=== PATIENT | female | born 1975 | race Caucasian/White ===

== ENCOUNTER → 2016-09-23 | Outpatient (REF) | payer OTHER ==
[2016-09-23 18:41] LABS: EOS # 0.4 K/mm3 (0.0-0.50); EOS % 7.4 % (0.0-3.0); LARGE UNSTAINED CELL # 0.1 K/mm3 (0.0-0.4); LARGE UNSTAINED CELL % 1.8 % (0.0-4.0); LYMPH # 1.7 K/mm3 (1.5-4.5); LYMPH % 30.3 % (24.0-44.0); MEAN CORPUSCULAR HEMOGLOBIN 30.6 pg (27.0-33.0); MEAN CORPUSCULAR HGB CONC 34.1 g/dl (32.0-36.5); MEAN CORPUSCULAR VOLUME 89.9 fl (80.0-96.0); MONO # 0.2 K/mm3 (0.0-0.8); MONO % 4.6 % (0.0-5.0); NEUTROPHILS # 2.9 K/mm3 (1.8-7.7); NEUTROPHILS % 54.8 % (36.0-66.0); PLATELET COUNT, AUTOMATED 205 k/mm3 (150-450); RED CELL DISTRIBUTION WIDTH 12.3 % (11.5-14.5); WHITE BLOOD COUNT 5.3 K/mm3 (4.0-10.0)
[2016-09-23 19:26] LABS: FREE T4 0.94 NG/DL (0.76-1.46); PERCENT SATURATION 29.6 % (13.2-37.4); TOTAL IRON BINDING CAPACITY 361 UG/DL (250-450)
[2016-09-24 08:43] LABS: THYROID PEROXIDASE ANTIBODY < 28.0 U/ML (<60.0)
== END ==
LOC: M LABDRAW1 17:01
PROVIDERS: ATTEND Nurse Practitioner Pediatrics
DX: F41.1 Generalized anxiety disorder (principal); R53.81 Other malaise; M35.3 Polymyalgia rheumatica; E03.8 Other specified hypothyroidism

== ENCOUNTER → 2016-11-08 | Outpatient (CLI) | payer OTHER ==
[2016-11-08 09:09] LABS: C4-DICARBOXYLIC N
[2016-11-08 09:52] LABS: FREE T4 1.19 NG/DL (0.76-1.46)
[2016-11-10 09:58] LABS: PROGESTERONE 9.9 NG/ML
== END ==
LOC: M LAB 08:42
PROVIDERS: ATTEND Nurse Practitioner Pediatrics
DX: R53.81 Other malaise (principal); F41.1 Generalized anxiety disorder; M35.3 Polymyalgia rheumatica; E03.8 Other specified hypothyroidism

== ENCOUNTER → 2016-12-11 | Outpatient (REF) | payer OTHER ==
[2016-12-11 21:11] LABS: FREE T4 0.8 NG/DL (0.76-1.46); PERCENT SATURATION 26.8 % (13.2-37.4)
== END | disposition home or self-care (01) ==
LOC: M LABDRWAD 20:16 → M LAB REF 20:16
PROVIDERS: ATTEND Nurse Practitioner Pediatrics
DX: F41.1 Generalized anxiety disorder (principal); E03.8 Other specified hypothyroidism; R53.81 Other malaise; M35.3 Polymyalgia rheumatica; D50.9 Iron deficiency anemia, unspecified

== ENCOUNTER → 2017-02-20 | Outpatient (CLI) | payer OTHER ==
[~2017-02-20] MED LIST: BENA25CA4 PO; CETI10TA PO; MOTR200T44 PO; NP T90TA PO; PROBCAP18 PO; WELLTAB40 PO
[2017-02-20 19:06] LABS: FREE T4 1.09 NG/DL (0.76-1.46)
== END ==
LOC: M SMT 14:49
PROVIDERS: ATTEND Nurse Practitioner Pediatrics
DX: E07.9 Disorder of thyroid, unspecified (principal)

== ENCOUNTER → 2017-04-24 | Outpatient (CLI) | payer OTHER ==
--- NOTE | 2017-04-28 06:23 | REP ---
Clinical: Abdominal and pelvic pain. Technique: Transabdominal pelvic ultrasound followed by transvaginal examination for better evaluation of the endometrium and adnexa. Findings: Bladder is normal and measures 11.1 x 9.7 x 10.4 cm. Heterogeneous anteverted uterus measures 12.8 x 4.0 x 6.7 cm. The endometrial complex measures 6.7 mm thickness. A small amount of fluid is identified extending into the endocervical region which is otherwise nonspecific. A 1.3 cm heterogeneous right fundal subserosal fibroid is identified. Maternal ovaries are normal in appearance. Right ovary measures 3.6 x 1.9 x 2.0 cm with sub centimeter follicles. Left ovary measures 2.4 x 1.6 x 1.2 cm with sub centimeter follicles. No pelvic fluid or adnexal mass lesion. Impression: 1. Heterogeneous mildly prominent uterus with small amount of endocervical fluid and 1.3 cm right fundal subserosal fibroid. 2. Normal bilateral ovaries. No pelvic fluid or adnexal mass lesion.
== END ==
LOC: M WHC 15:18
PROVIDERS: ATTEND Nurse Practitioner Women's Health
DX: R10.30 Lower abdominal pain, unspecified (principal); Z87.42 Personal history of other diseases of the female genital tract; Z80.41 Family history of malignant neoplasm of ovary

== ENCOUNTER → 2017-05-05 | Outpatient (REF) | payer OTHER | LOC: MERGE 17:00 → M LAB REF 17:00 | PROVIDERS: ATTEND Physician Assistant Medical | DX: N39.0 Urinary tract infection, site not specified (principal) ==

== ENCOUNTER 2017-05-18 08:39 | Emergency (ER) | payer OTHER ==
[~2017-05-18] VITALS: Ht 142.2 cm; Wt 51.4 kg
[2017-05-18] MEDS ORDERED: NP T90TA PO (09:01)
[2017-05-18] MEDS ORDERED: MOTR200T44 PO (09:01)
[2017-05-18] MEDS ORDERED: PROBCAP18 PO (09:01)
[2017-05-18] MEDS ORDERED: WELLTAB40 PO (09:01)
[2017-05-18] MEDS ORDERED: BENA25CA4 PO (09:01)
[2017-05-18] MEDS ORDERED: CETIRIZINE (ZyrTEC) 10 MG TAB PO ONE (10:30)
[2017-05-18] MEDS ORDERED: CETI10TA PO (11:28)
[2017-05-18 11:37] VITALS: BP 142/71
== END 2017-05-18 11:38 | disposition home or self-care (01) ==
LOC: M ED 08:39
DX: L50.9 Urticaria, unspecified (principal); M79.7 Fibromyalgia; F41.9 Anxiety disorder, unspecified; Z79.899 Other long term (current) drug therapy; Z88.0 Allergy status to penicillin; Z88.2 Allergy status to sulfonamides

== ENCOUNTER → 2017-05-18 | Outpatient (CLI) | payer OTHER ==
--- NOTE | 2017-05-19 06:46 | REP ---
Clinical: Abdominal and periumbilical pain. Comparison: 10/16/2014. Findings: Lung bases are clear. Visualized heart and pericardium unremarkable. Liver, spleen, pancreas, gallbladder, bilateral adrenal glands and kidneys are normal for noncontrast evaluation. The enteric system is without obstruction or acute inflammatory process. Normal terminal ileum and appendix are identified in the right lower quadrant. Pelvis demonstrates normal bladder and age-appropriate uterus/adnexa. No free air. No free fluid. No significant adenopathy or obvious mass lesion. No inguinal, umbilical or periumbilical hernia. The periumbilical subcutaneous and surrounding soft tissues are unremarkable. Surrounding musculoskeletal structures are intact. Impression: Normal noncontrast CT of the abdomen and pelvis. Signed by Victor Manuel Acuna MD 05/19/2017 06:38 A
== END ==
LOC: M RAD 16:49 → MERGE 17:00
PROVIDERS: ATTEND Physician Assistant Medical
DX: R10.9 Unspecified abdominal pain (principal)

== ENCOUNTER → 2017-09-22 | Outpatient (REF) | payer OTHER ==
[2017-09-22 20:30] LABS: TOTAL 25(OH) VITAMIN D 49.2 NG/ML (30.0-100.0)
[2017-09-22 20:36] LABS: CALCIUM LEVEL 8.6 MG/DL (8.5-10.1)
[2017-09-22 20:36] LABS: FREE T3 2.8 PG/ML (2.2-4.0); FREE T4 0.72 NG/DL (0.76-1.46); IRON (FE) 106 UG/DL (50-170)
== END ==
LOC: M LABDRWAD 18:26
DX: F41.1 Generalized anxiety disorder (principal); E03.8 Other specified hypothyroidism; R53.81 Other malaise

== ENCOUNTER → 2017-09-23 | Outpatient (REF) | payer OTHER | LOC: M LABDRAW1 10:00 | DX: Z83.2 Family history of diseases of the blood and blood-forming organs and certain disorders involving the immune mechanism (principal) | CPT/HCPCS: 36415 ==

== ENCOUNTER → 2017-09-30 | Outpatient (CLI) | payer OTHER ==
[2017-09-30 14:01] LABS: HEMATOCRIT 40.8 % (36.0-47.0); HEMOGLOBIN 13.5 g/dl (12.0-16.0); MEAN CORPUSCULAR HEMOGLOBIN 29.2 pg (27.0-33.0); MEAN CORPUSCULAR HGB CONC 33.1 g/dl (32.0-36.5); MEAN CORPUSCULAR VOLUME 88.3 fl (80.0-96.0); PLATELET COUNT, AUTOMATED 194 10^3/uL (150-450); RED BLOOD COUNT 4.62 10^6/uL (4.00-5.40); RED CELL DISTRIBUTION WIDTH 11.9 % (11.5-14.5); WHITE BLOOD COUNT 5.2 10^3/uL (4.0-10.0)
[2017-09-30 14:14] LABS: D-DIMER QUANT 360.2 ng/ml (<500)
[2017-09-30 14:30] LABS: ALBUMIN 4.4 GM/DL (3.2-5.2); ALBUMIN/GLOBULIN RATIO 1.47 (1.00-1.93); ALKALINE PHOSPHATASE 71 U/L (45-117); ALT/SGPT 26 U/L (12-78); ANION GAP 5 MEQ/L (8-16); AST/SGOT 17 U/L (7-37); BILIRUBIN,TOTAL 0.3 MG/DL (0.2-1.0); BLOOD UREA NITROGEN 12 MG/DL (7-18); CALCIUM LEVEL 8.8 MG/DL (8.5-10.1); CARBON DIOXIDE LEVEL 30 MEQ/L (21-32); CHLORIDE LEVEL 103 MEQ/L (98-107); CREATININE FOR GFR 0.77 MG/DL (0.55-1.30); GLOMERULAR FILTRATION RATE > 60.0 (>58); GLUCOSE, FASTING 82 MG/DL (70-100); POTASSIUM SERUM 4.5 MEQ/L (3.5-5.1); SODIUM LEVEL 138 MEQ/L (136-145); TOTAL PROTEIN 7.4 GM/DL (6.4-8.2)
== END ==
LOC: M SMT 09:25
DX: R30.0 Dysuria (principal); R07.9 Chest pain, unspecified
CPT/HCPCS: 80053

== ENCOUNTER → 2017-12-10 | Outpatient (CLI) | payer OTHER | LOC: M WHC 15:01 | DX: N83.202 Unspecified ovarian cyst, left side (principal); R93.8 Abnormal findings on diagnostic imaging of other specified body structures | CPT/HCPCS: 76830 ==

== ENCOUNTER → 2018-02-25 | Outpatient (REF) | payer OTHER ==
[2018-02-25 17:15] LABS: C REACTIVE PROTEIN QUANTITATIV < 0.30 MG/DL (0.00-0.30); FREE T3 3.2 PG/ML (2.2-4.0); FREE T4 0.77 NG/DL (0.76-1.46); IRON (FE) 141 UG/DL (50-170); PERCENT SATURATION 40.9 % (13.2-45.0); TOTAL IRON BINDING CAPACITY 345 UG/DL (250-450)
[2018-02-25 18:17] LABS: TOTAL 25(OH) VITAMIN D 36.8 NG/ML (30.0-100.0)
[2018-02-25 20:35] LABS: ERYTHROCYTE SEDIMENTATION RATE 5 mm/hr (0-20)
[2018-02-26 09:14] LABS: THYROID PEROXIDASE ANTIBODY < 28.0 U/ML (<60.0)
[2018-03-03 14:17] LABS: ANTINUCLEAR ANTIBODIES DIRECT Negative (Negative); MYCOPLASMA PNEUMONIAE IgG 358 U/mL (0-99); MYCOPLASMA PNEUMONIAE IgM <770 U/mL (0-769)
[2018-03-03 14:17] LABS: T3 REVERSE 15.8 ng/dL (9.2-24.1)
== END ==
LOC: M LABDRAW1 15:50
DX: F41.1 Generalized anxiety disorder (principal); E03.8 Other specified hypothyroidism; R53.81 Other malaise; M35.3 Polymyalgia rheumatica

== ENCOUNTER 2018-03-02 07:42 | Day surgery (SDC) | payer OTHER ==
[~2018-03-02 07:42] MED LIST changes: -BENA25CA4 PO; -CETI10TA PO; +KETOROLAC 60 MG/2 ML VIAL (J1885) As Ordered; +LIDOCAINE 2% INJ 100 MG/5 ML SDV (FOR ANES.) As Ordered; +LR 1,000 ML IV; -MOTR200T44 PO; -NP T90TA PO; +ONDANSETRON 4MG/2ML VIAL (J2405) As Ordered; -PROBCAP18 PO; +PROPOFOL 200 MG/20 ML VIAL As Ordered; +ROCURONIUM BROMIDE 50 MG/5 ML VIAL As Ordered; -WELLTAB40 PO; +dexameTHASONE 4 MG/ML 1ML VIAL (J1100) As Ordered
[2018-03-02] MEDS ORDERED: fentaNYL 250 MCG/5 ML INJECTION (J3010) As Ordered (07:58)
[2018-03-02] MEDS ORDERED: MIDAZOLAM INJ 2 MG/2 ML VIAL (J2250) As Ordered (07:58)
[2018-03-02 08:24] LABS: CONTROL LINE UCG INT CTR LINE PRESENT; URINE PREG TEST NEGATIVE (NEGATIVE)
[2018-03-02] MEDS: ceFAZolin SOD 1 GM in D5W MINI-BAG PLUS 50 ML IV (09:10)
[2018-03-02] MEDS: BUPIVACAINE/EPIN 0.25% 30 ML VIAL As Ordered (09:46)
[2018-03-02] MEDS ORDERED: ONDANSETRON 4MG/2ML VIAL (J2405) As Ordered (10:19)
[2018-03-02] MEDS: ONDANSETRON 4MG/2ML VIAL (J2405) IV (10:20)
[2018-03-02] MEDS ORDERED: LR 1,000 ML IV ×2 (10:30)
[2018-03-02] MEDS ORDERED: PERCOCET 5MG/325MG TAB PO (10:30)
[2018-03-02] MEDS ORDERED: ONDANSETRON 4MG/2ML VIAL (J2405) IV (10:30)
[2018-03-02] MEDS ORDERED: NORCO, ANEXSIA 5/325MG TABLET (HYDROcodone/ACETAMINOPHEN) PO (10:30)
[2018-03-02] MEDS ORDERED: fentaNYL 100 MCG/2 ML INJECTION (J3010) IV (10:30)
[2018-03-02] MEDS ORDERED: MORPHINE 4 MG/ML 1ML VIAL/SYRINGE (J2270) IV (10:30)
[2018-03-02] MEDS ORDERED: SUGAMMADEX SODIUM 500 MG/5 ML VIAL (BRIDION) As Ordered (11:20)
[2018-03-02] MEDS ORDERED: METOCLOPRAMIDE INJ 10MG/2ML VIAL (J2765) As Ordered (12:02)
[2018-03-02] MEDS: METOCLOPRAMIDE INJ 10MG/2ML VIAL (J2765) IV (12:10)
== END 2018-03-02 13:36 | disposition home or self-care (01) ==
LOC: M SDC 07:42
DX: K43.6 Other and unspecified ventral hernia with obstruction, without gangrene (principal); E03.9 Hypothyroidism, unspecified; K58.8 Other irritable bowel syndrome; F41.9 Anxiety disorder, unspecified; G47.30 Sleep apnea, unspecified; Z88.0 Allergy status to penicillin; Z88.2 Allergy status to sulfonamides; Z79.899 Other long term (current) drug therapy
CPT/HCPCS: 49570

== ENCOUNTER → 2018-03-08 | Outpatient (CLI) | payer OTHER ==
[2018-03-08 13:28] LABS: ALBUMIN 3.9 GM/DL (3.2-5.2); ALBUMIN/GLOBULIN RATIO 1.05 (1.00-1.93); ALKALINE PHOSPHATASE 87 U/L (45-117); ALT/SGPT 70 U/L (12-78); ANION GAP 6 MEQ/L (8-16); AST/SGOT 33 U/L (7-37); BILIRUBIN,TOTAL 0.2 MG/DL (0.2-1.0); BLOOD UREA NITROGEN 8 MG/DL (7-18); CALCIUM LEVEL 8.9 MG/DL (8.5-10.1); CARBON DIOXIDE LEVEL 29 MEQ/L (21-32); CHLORIDE LEVEL 110 MEQ/L (98-107); CREATININE FOR GFR 0.71 MG/DL (0.55-1.30); GLOMERULAR FILTRATION RATE > 60.0 (>58); GLUCOSE, FASTING 81 MG/DL (70-100); POTASSIUM SERUM 4.5 MEQ/L (3.5-5.1); RHEUMATOID FACTOR QUANT < 10.0 IU/ML (<15.0); SODIUM LEVEL 145 MEQ/L (136-145); TOTAL PROTEIN 7.6 GM/DL (6.4-8.2)
[2018-03-10 00:07] LABS: CYCLIC CITRULLINATED PEPTIDE 3 units (0-19)
[2018-03-10 00:07] LABS: ANTINUCLEAR ANTIBODIES DIRECT Negative (Negative); Lyme Disease IgG/IgM Antibodie <0.91 ISR (0.00-0.90); Lyme Disease IgM Ab Quantitati <0.80 index (0.00-0.79)
== END ==
LOC: M SMT 09:07
DX: R53.83 Other fatigue (principal); M79.1 Myalgia; R10.84 Generalized abdominal pain
CPT/HCPCS: 80053

== ENCOUNTER → 2018-03-10 | Outpatient (REF) | payer OTHER ==
[2018-03-12 00:08] LABS: H PYLORI STOOL ANTIGEN Negative (Negative)
== END ==
LOC: M LAB REF 10:32
DX: R19.7 Diarrhea, unspecified (principal); R10.84 Generalized abdominal pain
CPT/HCPCS: 87338

== ENCOUNTER → 2018-03-22 | Outpatient (REF) | payer OTHER | LOC: M LAB REF 17:48 | DX: R10.2 Pelvic and perineal pain (principal) | CPT/HCPCS: 87186 ==

== ENCOUNTER → 2018-04-11 | Outpatient (REF) | payer OTHER ==
[2018-04-11 22:30] LABS: APPEARANCE, URINE CLEAR (CLEAR); BACTERIA, URINE AUTO 2+ (NEGATIVE); BILIRUBIN, URINE AUTO NEGATIVE (NEGATIVE); BLOOD, URINE BLOOD NEGATIVE (NEGATIVE); COLOR, URINE YELLOW (YELLOW); GLUCOSE, URINE (UA) AUTO NEGATIVE (NEGATIVE); KETONE, URINE AUTO NEGATIVE (NEGATIVE); LEUKOCYTE ESTERASE, URINE AUTO NEGATIVE (NEGATIVE); NITRITE, URINE AUTO NEGATIVE (NEGATIVE); PROTEIN, URINE AUTO NEGATIVE (NEGATIVE); RBC, URINE AUTO 1 /HPF (0-3); SPECIFIC GRAVITY URINE AUTO 1.004 (1.002-1.035); SQUAMOUS EPITHELIAL CELL UR AU 0 /HPF (0-6); UROBILINOGEN, URINE AUTO 0.2 mg/dL (0.0-2.0); WBC, URINE AUTO 1 /HPF (0-3)
== END ==
LOC: M LAB REF 21:47
DX: N39.0 Urinary tract infection, site not specified (principal)

== ENCOUNTER → 2018-04-23 | Outpatient (REF) | payer OTHER ==
[2018-04-23 14:15] LABS: CHLAMYDIA DNA AMPLIFICATION NEGATIVE (NEGATIVE); GC DNA AMPLIFICATION NEGATIVE (NEGATIVE)
== END ==
LOC: M SFHCWAGY 11:36
DX: R10.2 Pelvic and perineal pain (principal)

== ENCOUNTER → 2018-04-23 | Outpatient (REF) | payer OTHER | LOC: M LAB REF 11:33 | DX: N89.8 Other specified noninflammatory disorders of vagina (principal) ==

== ENCOUNTER → 2018-06-14 | Outpatient (REF) | payer OTHER ==
[2018-06-14 13:54] LABS: HEMATOCRIT 40.3 % (36.0-47.0)
[2018-06-14 14:09] LABS: FREE T3 4.8 PG/ML (2.2-4.0); FREE T4 0.78 NG/DL (0.76-1.46)
[2018-06-14 14:21] LABS: TOTAL 25(OH) VITAMIN D 44.9 NG/ML (30.0-100.0)
[2018-06-15 10:42] LABS: PRETREATED FOLATE FOR RBCFOL 11.1 NG/ML; RBC FOLATE 578 NG/ML (280-791)
[2018-06-16 12:56] LABS: CORTISOL AM 8.5 UG/DL (4.3-22.4)
[2018-06-18 00:56] LABS: ARSENIC BLOOD 7 ug/L (2-23); LEAD BLOOD None Detected ug/dL (0-4); MAGNESIUM RBC LEVEL 4.7 mg/dL (4.2-6.8); MERCURY BLOOD None Detected ug/L (0.0-14.9); MYCOPLASMA PNEUMONIAE IgG 223 U/mL (0-99); MYCOPLASMA PNEUMONIAE IgM <770 U/mL (0-769); Methylmalonic Acid 120 nmol/L (0-378)
== END ==
LOC: M LABDRAW1 13:12
DX: F41.1 Generalized anxiety disorder (principal); R53.81 Other malaise; M35.3 Polymyalgia rheumatica; E03.8 Other specified hypothyroidism

== ENCOUNTER → 2018-08-11 | Outpatient (REF) | payer OTHER ==
[~2018-08-11] MED LIST changes: +BENA25CA4 PO; +BUPR15TA PO; +CETI10TA PO; -KETOROLAC 60 MG/2 ML VIAL (J1885) As Ordered; -LIDOCAINE 2% INJ 100 MG/5 ML SDV (FOR ANES.) As Ordered; -LR 1,000 ML IV; +MOTR200T44 PO; +NP T90TA PO; -ONDANSETRON 4MG/2ML VIAL (J2405) As Ordered; +PROBCAP18 PO; -PROPOFOL 200 MG/20 ML VIAL As Ordered; -ROCURONIUM BROMIDE 50 MG/5 ML VIAL As Ordered; +WELLTAB40 PO; -dexameTHASONE 4 MG/ML 1ML VIAL (J1100) As Ordered
[2018-08-14 18:21] LABS: HPV HYBRID CAPTURE II Negative (Negative)
== END ==
LOC: M SFHCWAGY 16:05
PROVIDERS: ATTEND Nurse Practitioner Family
DX: Z12.4 Encounter for screening for malignant neoplasm of cervix (principal)
CPT/HCPCS: 87624; G0123

== ENCOUNTER → 2018-10-15 | Outpatient (REF) | payer OTHER | LOC: M LAB REF 19:11 | PROVIDERS: ATTEND Physician Assistant Medical | DX: J02.9 Acute pharyngitis, unspecified (principal) ==

== ENCOUNTER → 2018-11-27 | Outpatient (CLI) | payer OTHER | LOC: M LAB 13:49 | PROVIDERS: ATTEND Specialist | DX: K62.5 Hemorrhage of anus and rectum (principal); R19.4 Change in bowel habit ==

== ENCOUNTER 2019-01-14 16:01 | Emergency (ER) | payer OTHER ==
[~2019-01-14] VITALS: Ht 144.8 cm; Wt 51.4 kg
[2019-01-14 16:35] LABS: BASO # 0.1 10^3/uL (0.0-0.2); BASO % 0.8 % (0.0-1.0); EOS # 0.3 10^3/uL (0.0-0.50); EOS % 4.3 % (0.0-3.0); HEMOGLOBIN 13.3 g/dl (12.0-15.5); MEAN CORPUSCULAR HEMOGLOBIN 29.4 pg (27.0-33.0); MEAN CORPUSCULAR HGB CONC 33.3 g/dl (32.0-36.5); MEAN CORPUSCULAR VOLUME 88.3 fl (80.0-96.0); MONO # 0.5 10^3/uL (0.0-0.8); MONO % 6.4 % (0.0-5.0); NEUTROPHILS # 4.4 10^3/uL (1.8-7.7); NEUTROPHILS % 60.4 % (36.0-66.0); PLATELET COUNT, AUTOMATED 171 10^3/uL (150-450); RED BLOOD COUNT 4.53 10^6/uL (4.00-5.40); WHITE BLOOD COUNT 7.2 10^3/uL (4.0-10.0)
[2019-01-14 17:07] LABS: HCG, SERUM QUALITATIVE NEGATIVE (NEGATIVE)
[2019-01-14 17:15] LABS: ALBUMIN 4.5 GM/DL (3.2-5.2); ALT/SGPT 21 U/L (12-78); BILIRUBIN,DIRECT 0.1 MG/DL (0.0-0.2); BILIRUBIN,TOTAL 0.4 MG/DL (0.2-1.0); BLOOD UREA NITROGEN 12 MG/DL (7-18); CALCIUM LEVEL 9.1 MG/DL (8.5-10.1); CARBON DIOXIDE LEVEL 27 MEQ/L (21-32); CHLORIDE LEVEL 105 MEQ/L (98-107); CK-MB VALUE MASS < 1.0 NG/ML (<3.6); CPK CREATINE PHOSPHOKINASE 76 U/L (26-192); CREATININE FOR GFR 0.93 MG/DL (0.55-1.30); FREE T4 0.81 NG/DL (0.76-1.46); GLOMERULAR FILTRATION RATE > 60.0 (>58); GLUCOSE, FASTING 80 MG/DL (70-100); LIPASE 167 U/L (73-393); MB/CK RELATIVE INDEX 1.32 (< OR =4); POTASSIUM SERUM 3.7 MEQ/L (3.5-5.1); SODIUM LEVEL 138 MEQ/L (136-145); THYROID STIMULATING HORMONE 0.767 uIU/ML (0.358-3.740); TOTAL PROTEIN 7.9 GM/DL (6.4-8.2); TROPONIN I < 0.02 NG/ML (< 0.10)
[2019-01-14] MEDS ORDERED: ISOVUE-370 76% 100ML VIAL (Q9967) As Ordered ONE (17:24)
[2019-01-14 18:00] VITALS: BP 114/66
--- NOTE | 2019-01-14 18:04 | REP ---
CHEST: Single view: There is no evidence of acute infiltrate. No pleural effusion is seen. The heart is normal in size. The mediastinal silhouette is unremarkable. The visualized osseous structures are intact. IMPRESSION: No acute pulmonary disease. Electronically Signed by Rusty Marie MD 01/14/2019 07:48 P
--- NOTE | 2019-01-14 18:12 | REP ---
CT ANGIOGRAM CHEST: TECHNIQUE: Axial contrast enhanced images from the thoracic inlet to the upper abdomen using 100 mL Isovue 370 intravenous contrast material with multiplanar reformations. There is no CT evidence of pulmonary embolism. There is no thoracic aortic aneurysm or dissection. Heart is not enlarged. There is no pleural or pericardial effusion. There is no mediastinal, hilar, or chest wall lymphadenopathy. The visualized upper abdominal structures are unremarkable. The adrenal glands are normal. The lungs are clear with no infiltrate. IMPRESSION: No CT evidence of pulmonary embolism or aortic dissection. No evidence of acute infiltrate. Electronically Signed by Rusty Marie MD 01/14/2019 07:49 P
--- NOTE | 2019-01-14 18:16 | REPVR ---
EXAM: US Duplex Left Lower Extremity Veins, Limited EXAM DATE/TIME: 01/14/2019 5:47 PM CLINICAL HISTORY: 43 years old, female; Pain; Leg, lower; Left; Additional info: Lle calf pain TECHNIQUE: Imaging protocol: Real-time Duplex ultrasound of the Left Lower Extremity with 2-D locke scale, color Doppler flow and spectral waveform analysis. Limited exam focused on the left lower extremity veins. COMPARISON: No relevant prior studies available. FINDINGS: Left deep veins: Unremarkable. The common femoral, proximal profunda femoral, femoral, popliteal and posterior tibial veins are patent without thrombus. Normal compressibility, augmentation response and Doppler waveforms. Left superficial veins: Unremarkable. Saphenofemoral junction is patent without thrombus. Soft tissues: Unremarkable. IMPRESSION: No sonographic evidence of deep vein thrombosis. Electronically signed by: Jeevan Bae On 01/14/2019 18:16:24 PM
--- NOTE | 2019-01-15 07:15 | ECGEPIP ---
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
== END 2019-01-14 18:49 | disposition home or self-care (01) ==
LOC: M ED 16:01
DX: R07.9 Chest pain, unspecified (principal); D68.59 Other primary thrombophilia; F41.9 Anxiety disorder, unspecified; Z79.899 Other long term (current) drug therapy; Z88.0 Allergy status to penicillin; Z88.2 Allergy status to sulfonamides; Z91.018 Allergy to other foods
CPT/HCPCS: 71045; 71275; 80048; 80076; 82550; 82553; 83690; 84439; 84443; 84484; 84703; 85025; 93005; 93041; 93971; 94760; 99284; Q9967

== ENCOUNTER → 2019-03-11 | Outpatient (REF) | payer OTHER | LOC: M LAB REF 19:07 | PROVIDERS: ATTEND Physician Assistant Medical | DX: R30.0 Dysuria (principal) ==

== ENCOUNTER → 2019-05-19 | Outpatient (CLI) | payer OTHER ==
[2019-05-19 14:42] LABS: BASO # 0.1 10^3/uL (0.0-0.2); BASO % 0.9 % (0.0-1.0); EOS # 0.4 10^3/uL (0.0-0.5); EOS % 5.2 % (0.0-3.0); HEMATOCRIT 37.2 % (36.0-47.0); LYMPH # 1.5 10^3/uL (1.5-5.0); LYMPH % 22.2 % (24.0-44.0); MEAN CORPUSCULAR HEMOGLOBIN 27.6 pg (27.0-33.0); MEAN CORPUSCULAR HGB CONC 32.3 g/dl (32.0-36.5); MEAN CORPUSCULAR VOLUME 85.5 fl (80.0-96.0); MONO # 0.5 10^3/uL (0.0-0.8); MONO % 7.5 % (0.0-5.0); NEUTROPHILS # 4.4 10^3/uL (1.5-8.5); NEUTROPHILS % 63.9 % (36.0-66.0); PLATELET COUNT, AUTOMATED 191 10^3/uL (150-450); RED BLOOD COUNT 4.35 10^6/uL (4.00-5.40); WHITE BLOOD COUNT 6.9 10^3/uL (4.0-10.0)
[2019-05-19 14:59] LABS: BLOOD UREA NITROGEN 12 MG/DL (7-18); CALCIUM LEVEL 8.8 MG/DL (8.5-10.1); CARBON DIOXIDE LEVEL 27 MEQ/L (21-32); CHLORIDE LEVEL 105 MEQ/L (98-107); CREATININE FOR GFR 0.92 MG/DL (0.55-1.30); GLOMERULAR FILTRATION RATE > 60.0 (>58); GLUCOSE, FASTING 85 MG/DL (70-100); POTASSIUM SERUM 4.3 MEQ/L (3.5-5.1); SODIUM LEVEL 137 MEQ/L (136-145)
[2019-05-19 15:16] LABS: APPEARANCE, URINE CLEAR (CLEAR); BACTERIA, URINE AUTO 2+ (NEGATIVE); BILIRUBIN, URINE AUTO NEGATIVE (NEGATIVE); BLOOD, URINE BLOOD NEGATIVE (NEGATIVE); COLOR, URINE STRAW (YELLOW); GLUCOSE, URINE (UA) AUTO NEGATIVE (NEGATIVE); KETONE, URINE AUTO NEGATIVE (NEGATIVE); LEUKOCYTE ESTERASE, URINE AUTO NEGATIVE (NEGATIVE); NITRITE, URINE AUTO NEGATIVE (NEGATIVE); PROTEIN, URINE AUTO NEGATIVE (NEGATIVE); RBC, URINE AUTO 0 /HPF (0-3); SPECIFIC GRAVITY URINE AUTO 1.002 (1.002-1.035); SQUAMOUS EPITHELIAL CELL UR AU 2 /HPF (0-6); UROBILINOGEN, URINE AUTO 0.2 mg/dL (0.0-2.0); WBC, URINE AUTO 2 /HPF (0-3)
--- NOTE | 2019-05-19 17:26 | REP ---
Limited pelvic, bladder sonography: History: History of neurogenic bladder and urinary retention. Chronic left flank pain and unspecified hydronephrosis. Sonographic findings: Pre void bladder volume is calculated at 510 mL. Bladder cevallos are smooth. No extravesical lesion. Emptying ureteral jets are confirmed bilaterally on color Doppler interrogation of the bladder lumen. Postvoid bladder emptying is good with a 16 ml calculated volume (3% postvoid residual). Impression: Unremarkable bladder sonography. Electronically Signed by Bunny García MD 05/19/2019 06:31 P
--- NOTE | 2019-05-19 17:28 | REP ---
Renal sonography: History: Chronic left flank pain. Unspecified hydronephrosis. Increased pain. Sonographic findings: Renal cortical echogenicity pattern is increased bilaterally consistent with chronic medical renal disease. The renal pyramids are somewhat echogenic bilaterally consistent with medullary sponge kidney. There is evidence of mild bilateral hydronephrosis. The separation of central renal sinus echoes is similar to the extrarenal pelvis configuration seen by CT study on May 18, 2017 and is probably not new. Right renal dimensions are 10.7 x 3.8 x 4.1 cm. The left kidney measures 10.8 x 5.5 x 5.4 cm. There is a 1 cm accessory splenule in the left upper quadrant which is visible in retrospect on CT study from 2017 as well. Impression: Increased renal cortical echogenicity and increased medullary echogenicity consistent with medullary sponge kidney, chronic renal disease. There is mild separation of central renal sinus echoes consistent with minimal hydronephrosis bilaterally. Electronically Signed by Bunny García MD 05/19/2019 06:31 P
== END ==
LOC: M RAD 13:51
PROVIDERS: ATTEND Physician Assistant
DX: N13.30 Unspecified hydronephrosis (principal)

== ENCOUNTER → 2019-09-03 | Outpatient (CLI) | payer OTHER ==
[2019-09-03 12:31] LABS: BLOOD UREA NITROGEN 8 MG/DL (7-18); CALCIUM LEVEL 8.7 MG/DL (8.5-10.1); CARBON DIOXIDE LEVEL 27 MEQ/L (21-32); CHLORIDE LEVEL 110 MEQ/L (98-107); CREATININE FOR GFR 0.76 MG/DL (0.55-1.30); GLOMERULAR FILTRATION RATE > 60.0 (>58); GLUCOSE, FASTING 85 MG/DL (70-100); POTASSIUM SERUM 4.6 MEQ/L (3.5-5.1); SODIUM LEVEL 141 MEQ/L (136-145)
== END ==
LOC: M WUC 09:38
PROVIDERS: ATTEND Nurse Practitioner
DX: N28.1 Cyst of kidney, acquired (principal)

== ENCOUNTER → 2019-09-04 | Outpatient (CLI) | payer OTHER ==
[2019-09-04 17:50] LABS: HEMOGLOBIN A1c 5.4 %
[2019-09-04 17:58] LABS: BLOOD UREA NITROGEN 8 MG/DL (7-18); CALCIUM LEVEL 8.5 MG/DL (8.5-10.1); CARBON DIOXIDE LEVEL 28 MEQ/L (21-32); CHLORIDE LEVEL 109 MEQ/L (98-107); CREATININE FOR GFR 0.77 MG/DL (0.55-1.30); GLOMERULAR FILTRATION RATE > 60.0 (>58); GLUCOSE, FASTING 79 MG/DL (70-100); POTASSIUM SERUM 4.8 MEQ/L (3.5-5.1); SODIUM LEVEL 142 MEQ/L (136-145)
== END ==
LOC: M LABDRWAD 09:40
PROVIDERS: ATTEND Physician Assistant
DX: R73.01 Impaired fasting glucose (principal)

== ENCOUNTER → 2019-11-01 | Outpatient (REF) | payer OTHER ==
[2019-11-01 13:25] LABS: C REACTIVE PROTEIN QUANTITATIV < 0.30 MG/DL (0.00-0.30); CHOLESTEROL LEVEL 153 MG/DL (<200); CHOLESTEROL RISK RATIO 2.781 (<5); HDL CHOLESTEROL 55 MG/DL (>40); LDL CHOLESTEROL 82 MG/DL (<100); NON-HDL-C 98 MG/DL; TRIGLYCERIDES LEVEL 79 MG/DL (<150)
== END ==
LOC: M LABDRWAD 12:36
PROVIDERS: ATTEND Internal Medicine Cardiovascular Disease
DX: R07.2 Precordial pain (principal)

== ENCOUNTER → 2020-04-07 | Outpatient (REF) | payer OTHER | LOC: M SFHCADAM 19:15 | PROVIDERS: ATTEND Physician Assistant | DX: J02.9 Acute pharyngitis, unspecified (principal) ==

== ENCOUNTER → 2020-04-17 | Outpatient (REF) | payer OTHER ==
[2020-04-17 17:16] LABS: BLOOD UREA NITROGEN 13 MG/DL (7-18); CALCIUM LEVEL 8.9 MG/DL (8.5-10.1); CARBON DIOXIDE LEVEL 31 MEQ/L (21-32); CHLORIDE LEVEL 105 MEQ/L (98-107); CREATININE FOR GFR 0.71 MG/DL (0.55-1.30); GLOMERULAR FILTRATION RATE > 60.0 (>58); GLUCOSE, FASTING 109 MG/DL (70-100); SODIUM LEVEL 139 MEQ/L (136-145)
== END ==
LOC: M LAB REF 16:33
PROVIDERS: ATTEND Nurse Practitioner
DX: N13.30 Unspecified hydronephrosis (principal)

== ENCOUNTER → 2020-05-09 | Outpatient (REF) | payer OTHER ==
[2020-05-09 14:39] LABS: FREE T3 2.5 PG/ML (2.2-4.0); FREE T4 0.86 NG/DL (0.76-1.46); THYROID STIMULATING HORMONE 1.83 uIU/ML (0.358-3.740)
== END ==
LOC: M LABDRWAD 12:39 → M LAB REF 12:39
PROVIDERS: ATTEND Family Medicine
DX: E03.9 Hypothyroidism, unspecified (principal)

== ENCOUNTER → 2020-07-19 | Outpatient (CLI) | payer OTHER ==
[2020-07-19 13:52] LABS: BASO # 0.1 10^3/uL (0.0-0.2); BASO % 1.2 % (0.0-1.0); EOS # 0.3 10^3/uL (0.0-0.5); EOS % 5.6 % (0.0-3.0); HEMATOCRIT 41.6 % (36.0-47.0); HEMOGLOBIN 13.6 g/dl (12.0-15.5); LYMPH # 1.6 10^3/uL (1.5-5.0); MEAN CORPUSCULAR HEMOGLOBIN 30.2 pg (27.0-33.0); MEAN CORPUSCULAR HGB CONC 32.7 g/dl (32.0-36.5); MEAN CORPUSCULAR VOLUME 92.2 fl (80.0-96.0); MONO # 0.3 10^3/uL (0.0-0.8); MONO % 5.4 % (0.0-5.0); NEUTROPHILS # 2.6 10^3/uL (1.5-8.5); NEUTROPHILS % 53.6 % (36.0-66.0); PLATELET COUNT, AUTOMATED 182 10^3/uL (150-450); RED BLOOD COUNT 4.51 10^6/uL (4.00-5.40); WHITE BLOOD COUNT 4.8 10^3/uL (4.0-10.0)
[2020-07-19 14:27] LABS: ALBUMIN 3.9 GM/DL (3.2-5.2); ALT/SGPT 23 U/L (12-78); BILIRUBIN,TOTAL 0.3 MG/DL (0.2-1.0); BLOOD UREA NITROGEN 18 MG/DL (7-18); CALCIUM LEVEL 8.8 MG/DL (8.5-10.1); CARBON DIOXIDE LEVEL 28 MEQ/L (21-32); CHLORIDE LEVEL 107 MEQ/L (98-107); CHOLESTEROL LEVEL 167 MG/DL (<200); CHOLESTEROL RISK RATIO 2.455 (<5); CREATININE FOR GFR 0.88 MG/DL (0.55-1.30); FERRITIN 23 NG/ML (8-252); FREE T4 0.74 NG/DL (0.76-1.46); GLOMERULAR FILTRATION RATE > 60.0 (>58); GLUCOSE, FASTING 90 MG/DL (70-100); HDL CHOLESTEROL 68 MG/DL (>40); IRON (FE) 61 UG/DL (50-170); LDL CHOLESTEROL 88 MG/DL (<100); NON-HDL-C 99 MG/DL; PERCENT SATURATION 17.5 % (13.2-45.0); POTASSIUM SERUM 4.6 MEQ/L (3.5-5.1); SODIUM LEVEL 141 MEQ/L (136-145); THYROID STIMULATING HORMONE 0.496 uIU/ML (0.358-3.740); TOTAL IRON BINDING CAPACITY 349 UG/DL (250-450); TOTAL PROTEIN 6.7 GM/DL (6.4-8.2); TRIGLYCERIDES LEVEL 53 MG/DL (<150)
[2020-07-19 14:30] LABS: CORTISOL AM 10.8 UG/DL (4.3-22.4); VITAMIN B12 LEVEL 531 PG/ML (247-911)
[2020-07-19 14:31] LABS: FOLATE 8.4 NG/ML (>5.4)
[2020-07-25 15:12] LABS: HOMOCYST(E)INE SERUM 9.6 umol/L (0.0-14.5); VITAMIN B1 LEVEL WHOLE BLOOD 145.2 nmol/L (66.5-200.0)
== END ==
LOC: M LABDRWAD 08:48
DX: E03.9 Hypothyroidism, unspecified (principal)

== ENCOUNTER → 2020-09-05 | Outpatient (REF) | payer OTHER | LOC: M LAB REF 17:01 | PROVIDERS: ATTEND Physician Assistant | DX: Z00.00 Encounter for general adult medical examination without abnormal findings (principal) ==

== ENCOUNTER → 2020-09-12 | Outpatient (CLI) | payer OTHER ==
--- NOTE | 2020-09-12 08:40 | REP ---
INDICATION: HEMATURIA COMPARISON: 05/19/2019 TECHNIQUE: Real time locke scale ultrasound examination using curved array transducer. FINDINGS: The kidneys are normal in reniform shape and demonstrate echogenic medullary pyramids consistent with medullary sponge kidney as previously diagnosed. No hydronephrosis or obvious shadowing nephroliths are identified. Right kidney measures 11.5 x 4.7 x 3.4 cm and includes 12 mm upper pole cyst. Left kidney measures 11.9 x 5.1 x 3.4 cm and includes 12 mm complex lower pole cystic lesion. The bladder is unremarkable. IMPRESSION: 1. Findings again consistent with medullary sponge kidney. 2. No hydronephrosis. 3. Simple right renal cyst and complex left renal cystic lesion which were not definitively identified on prior examination. Consider pre and postcontrast CT of the abdomen to confirm benignity. <Electronically signed by Victor Manuel Acuna > 09/12/20 [id number]
== END ==
LOC: M RAD 07:48
PROVIDERS: ATTEND Physician Assistant
DX: N28.1 Cyst of kidney, acquired (principal); R31.9 Hematuria, unspecified

== ENCOUNTER → 2020-10-20 | Outpatient (CLI) | payer OTHER ==
[2020-10-20 11:04] LABS: FREE T3 2.3 PG/ML (2.2-4.0); FREE T4 0.88 NG/DL (0.76-1.46); THYROID STIMULATING HORMONE 0.997 uIU/ML (0.358-3.740)
== END ==
LOC: M LAB 09:40
PROVIDERS: ATTEND Family Medicine
DX: E03.9 Hypothyroidism, unspecified (principal)

== ENCOUNTER → 2020-11-14 | Outpatient (CLI) | payer OTHER ==
--- NOTE | 2020-11-14 10:28 | REPMRS ---
Patient History The patient states she has not had a clinical breast exam in over a year. Family history of pancreatic cancer at age 75 in mother, breast cancer and ovarian cancer in maternal aunt, breast cancer and endometrial cancer in maternal aunt, prostate cancer in father. 3D TOMOSYNTHESIS WAS PERFORMED. The Iwona Esteves lifetime risk for breast cancer is 15.3%. Volpara breast density b. Digital Woman Screen Mammo: November 14, 2020 - Exam #: [id number] Bilateral CC and MLO view(s) were taken. Technologist: Dayana Veronica, Technologist Prior study comparison: March 18, 2019, bilateral digital mammo screening bilat, performed at [facility]. March 10, 2018, bilateral digital mammo screening bilat, performed at [facility]. FINDINGS: There are scattered fibroglandular densities. There has been no change in the appearance of the mammogram from the prior studies. There is a mild amount of residual fibroglandular tissue which is fairly symmetric. There is no interval development of dominant mass, architectural distortion, or clustered microcalcification suggestive of malignancy. Assessment: BI-RADS/ACR category 1 mammogram. Negative Mammogram. Recommendation Routine screening mammogram in 1 year (for women over age 40). This mammogram was interpreted with the aid of an FDA-approved computer-aided dectection system. Electronically Signed By: Rusty Marie MD 11/14/20 [id number]
== END ==
LOC: M WHC 09:01
PROVIDERS: ATTEND Family Medicine
DX: Z12.31 Encounter for screening mammogram for malignant neoplasm of breast (principal); Z80.3 Family history of malignant neoplasm of breast

== ENCOUNTER → 2021-01-16 | Outpatient (REF) | payer OTHER ==
[2021-01-16 17:14] LABS: BLOOD UREA NITROGEN 6 MG/DL (7-18); CALCIUM LEVEL 8.4 MG/DL (8.5-10.1); CARBON DIOXIDE LEVEL 31 MEQ/L (21-32); CHLORIDE LEVEL 105 MEQ/L (98-107); CREATININE FOR GFR 0.62 MG/DL (0.55-1.30); GLOMERULAR FILTRATION RATE > 60.0 (>58); GLUCOSE, FASTING 71 MG/DL (70-100); POTASSIUM SERUM 3.8 MEQ/L (3.5-5.1); SODIUM LEVEL 139 MEQ/L (136-145)
== END ==
LOC: M LABDRWAD 16:02
PROVIDERS: ATTEND Internal Medicine Nephrology
DX: N20.0 Calculus of kidney (principal)

== ENCOUNTER → 2021-01-21 | Outpatient (CLI) | payer OTHER ==
[~2021-01-21] MED LIST changes: +ISOVUE-370 76% 100ML VIAL As Ordered ONE
--- NOTE | 2021-01-21 12:34 | REP ---
INDICATION: KARIN OF UNCERTAIN BEHAVIOR LT KIDNEY. COMPARISON: Comparison abdomen CT study May 18, 2017. Comparison urinary tract sonography September 12, 2020.. TECHNIQUE: Contrast dose: 100 ML of Isovue 370 are administered. Pre and postcontrast helical scanning is acquired. 3 mm axial images re-formatted. Coronal and sagittal MPR images are generated. A 5 minutes delay postcontrast acquisition is included. CT urography. FINDINGS: Preliminary digital professor of violin radiographs are unremarkable. Normal bowel gas pattern. The lung bases are clear. There is a tiny subpleural 3 mm nodule in the left lower lobe which is unchanged from the 2017 prior study. No pleural effusion or upper abdominal ascites is seen. The liver and the spleen are normal in size homogeneous in texture on pre and postcontrast images. There is a tiny accessory splenule. Normal adrenal glands are observed. No abnormality is noted in the pancreas or the gallbladder. There is no evidence of hydronephrosis or intrarenal calculus on either side. I do not see evidence by CT scanning to suggest medullary sponge kidney. There is a simple cyst in the upper pole of the right kidney measuring 1.4 cm. There is a midpole cyst in the left kidney measuring 1 cm. No renal mass lesion is observed on either side. There is a tiny cortical superolateral of the left kidney. Delayed acquisition images show no filling defect in the upper tract collecting system on either side. The ureters describe a normal course to the urinary bladder. There is no evidence of enhancing bladder mass. No bladder calculus is seen. The uterus is surgically absent. Small and large bowel loops are unremarkable. No abdominal wall defect is seen. No retroperitoneal mass or adenopathy is observed. No bony destructive lesion is seen. A normal appendix is seen in the right lower quadrant. IMPRESSION: No urinary tract calculus or mass lesion. Bilateral renal cortical cysts are observed. There is no CT evidence to suggest medullary sponge kidney. <Electronically signed by Skip García > 01/21/21 [id number]
== END ==
LOC: M RAD 08:59
PROVIDERS: ATTEND Internal Medicine Nephrology
DX: N28.1 Cyst of kidney, acquired (principal)
CPT/HCPCS: 74178; Q9967

== ENCOUNTER → 2021-04-19 | Outpatient (REF) | payer OTHER ==
[~2021-04-19] MED LIST changes: -ISOVUE-370 76% 100ML VIAL As Ordered ONE
[2021-04-19 20:12] LABS: BLOOD UREA NITROGEN 12 MG/DL (7-18); CALCIUM LEVEL 8.5 MG/DL (8.5-10.1); CARBON DIOXIDE LEVEL 30 MEQ/L (21-32); CHLORIDE LEVEL 104 MEQ/L (98-107); CREATININE FOR GFR 0.64 MG/DL (0.55-1.30); GLOMERULAR FILTRATION RATE > 60.0 (>58); GLUCOSE, FASTING 120 MG/DL (70-100); POTASSIUM SERUM 3.5 MEQ/L (3.5-5.1); SODIUM LEVEL 139 MEQ/L (136-145)
== END ==
LOC: M LABDRWAD 19:20
PROVIDERS: ATTEND Nurse Practitioner
DX: N13.30 Unspecified hydronephrosis (principal)

== ENCOUNTER → 2021-09-17 | Outpatient (REF) | payer OTHER ==
[2021-09-17 13:12] LABS: FREE T3 2.2 PG/ML (2.2-4.0); FREE T4 0.92 NG/DL (0.76-1.46); THYROID STIMULATING HORMONE 1.51 uIU/ML (0.358-3.740)
== END ==
LOC: M LABDRWAD 12:22
PROVIDERS: ATTEND Family Medicine
DX: E06.9 Thyroiditis, unspecified (principal)

== ENCOUNTER → 2021-09-27 | Outpatient (CLI) | payer OTHER ==
[2021-09-27 12:37] LABS: HEMOGLOBIN A1c 5.4 %
[2021-09-27 12:41] LABS: ALBUMIN 3.9 GM/DL (3.2-5.2); ALT/SGPT 42 U/L (12-78); BILIRUBIN,TOTAL 0.4 MG/DL (0.2-1.0); BLOOD UREA NITROGEN 10 MG/DL (7-18); CARBON DIOXIDE LEVEL 33 MEQ/L (21-32); CHLORIDE LEVEL 106 MEQ/L (98-107); CREATININE FOR GFR 0.85 MG/DL (0.55-1.30); FERRITIN 45 NG/ML (8-252); GLOMERULAR FILTRATION RATE > 60.0 (>58); GLUCOSE, FASTING 84 MG/DL (70-100); POTASSIUM SERUM 4.2 MEQ/L (3.5-5.1); SODIUM LEVEL 142 MEQ/L (136-145); TOTAL PROTEIN 7.3 GM/DL (6.4-8.2)
[2021-09-27 12:48] LABS: TOTAL 25(OH) VITAMIN D 23.5 NG/ML (30.0-100.0)
[2021-09-27 12:50] LABS: VITAMIN B12 LEVEL 483 PG/ML (247-911)
[2021-09-27 13:22] LABS: PTH INTACT 36.6 PG/ML (18.5-88.0)
== END ==
LOC: M ADAMS 10:04
DX: E03.9 Hypothyroidism, unspecified (principal); Z77.120 Contact with and (suspected) exposure to mold (toxic)

== ENCOUNTER → 2021-12-27 | Outpatient (CLI) | payer OTHER ==
[2021-12-27 12:58] LABS: BASO # 0.1 10^3/uL (0.0-0.2); BASO % 1.1 % (0.0-1.0); EOS # 0.3 10^3/uL (0.0-0.5); EOS % 5.7 % (0.0-3.0); HEMATOCRIT 40.8 % (36.0-47.0); HEMOGLOBIN 13.2 g/dl (12.0-15.5); LYMPH # 1.6 10^3/uL (1.5-5.0); LYMPH % 30.7 % (24.0-44.0); MEAN CORPUSCULAR HGB CONC 32.4 g/dl (32.0-36.5); MEAN CORPUSCULAR VOLUME 92.7 fl (80.0-96.0); MONO # 0.4 10^3/uL (0.0-0.8); MONO % 6.7 % (2.0-8.0); NEUTROPHILS # 2.9 10^3/uL (1.5-8.5); NEUTROPHILS % 55.6 % (36.0-66.0); PLATELET COUNT, AUTOMATED 180 10^3/uL (150-450); WHITE BLOOD COUNT 5.3 10^3/uL (4.0-10.0)
[2021-12-27 13:37] LABS: ALBUMIN 3.7 GM/DL (3.2-5.2); ALT/SGPT 35 U/L (12-78); BILIRUBIN,TOTAL 0.4 MG/DL (0.2-1.0); BLOOD UREA NITROGEN 8 MG/DL (7-18); CALCIUM LEVEL 8.7 MG/DL (8.5-10.1); CARBON DIOXIDE LEVEL 26 MEQ/L (21-32); CHLORIDE LEVEL 109 MEQ/L (98-107); CREATININE FOR GFR 0.73 MG/DL (0.55-1.30); FERRITIN 45 NG/ML (8-252); FOLATE 6.7 NG/ML; FREE T4 0.89 NG/DL (0.76-1.46); GLOMERULAR FILTRATION RATE > 60.0 (>58); GLUCOSE, FASTING 93 MG/DL (70-100); IRON (FE) 103 UG/DL (50-170); MAGNESIUM LEVEL 2.1 MG/DL (1.8-2.4); PERCENT SATURATION 31.7 % (13.2-45.0); POTASSIUM SERUM 4.4 MEQ/L (3.5-5.1); RHEUMATOID FACTOR QUANT < 10.0 IU/ML (<15.0); SODIUM LEVEL 138 MEQ/L (136-145); THYROID STIMULATING HORMONE 0.871 uIU/ML (0.358-3.740); TOTAL 25(OH) VITAMIN D 28.8 NG/ML (30.0-100.0); TOTAL IRON BINDING CAPACITY 325 UG/DL (250-450); TOTAL PROTEIN 6.8 GM/DL (6.4-8.2); URIC ACID 3.1 MG/DL (2.6-6.0); VITAMIN B12 LEVEL 341 PG/ML
[2021-12-27 14:07] LABS: ERYTHROCYTE SEDIMENTATION RATE 5 mm/hr (0-20)
[2021-12-31 00:07] LABS: ANA (HEP2) Negative (.); CYCLIC CITRULLINATED PEPTIDE 2 units (0-19)
== END ==
LOC: M WUC 09:50
PROVIDERS: ATTEND Nurse Practitioner Adult Health
DX: R53.83 Other fatigue (principal); G47.33 Obstructive sleep apnea (adult) (pediatric); F41.1 Generalized anxiety disorder; E55.9 Vitamin D deficiency, unspecified

== ENCOUNTER → 2022-03-24 | Outpatient (CLI) | payer OTHER | LOC: M WHC 11:30 | PROVIDERS: ATTEND Nurse Practitioner Adult Health | DX: Z12.31 Encounter for screening mammogram for malignant neoplasm of breast (principal); N63.25 Unspecified lump in the left breast, overlapping quadrants ==

== ENCOUNTER → 2022-03-26 | Outpatient (REF) | payer OTHER | LOC: M LAB REF 17:39 | PROVIDERS: ATTEND Surgery | DX: L72.3 Sebaceous cyst (principal) ==

== ENCOUNTER → 2022-03-31 | Outpatient (CLI) | payer OTHER ==
[2022-03-31 14:23] LABS: BLOOD UREA NITROGEN 12 MG/DL (7-18); CALCIUM LEVEL 8.6 MG/DL (8.5-10.1); CARBON DIOXIDE LEVEL 28 MEQ/L (21-32); CHLORIDE LEVEL 110 MEQ/L (98-107); CHOLESTEROL LEVEL 172 MG/DL (<200); CHOLESTEROL RISK RATIO 2.646 (<5); CREATININE FOR GFR 0.75 MG/DL (0.55-1.30); GLOMERULAR FILTRATION RATE > 60.0 (>58); GLUCOSE, FASTING 94 MG/DL (70-100); HDL CHOLESTEROL 65 MG/DL (>40); LDL CHOLESTEROL 96 MG/DL (<100); NON-HDL-C 107 MG/DL; POTASSIUM SERUM 4.8 MEQ/L (3.5-5.1); SODIUM LEVEL 141 MEQ/L (136-145); TRIGLYCERIDES LEVEL 54 MG/DL (<150)
== END ==
LOC: M ADAMS 08:54
PROVIDERS: ATTEND Family Medicine
DX: Z13.220 Encounter for screening for lipoid disorders (principal); Z13.29 Encounter for screening for other suspected endocrine disorder

== ENCOUNTER → 2022-04-03 | Outpatient (CLI) | payer OTHER | LOC: M WHC 07:39 | PROVIDERS: ATTEND Family Medicine | DX: R92.8 Other abnormal and inconclusive findings on diagnostic imaging of breast (principal) | CPT/HCPCS: 77065; G0279 ==

== ENCOUNTER → 2022-06-13 | Outpatient (CLI) | payer OTHER ==
[2022-06-13 13:52] LABS: FREE T3 2.6 PG/ML (2.2-4.0); FREE T4 0.94 NG/DL (0.76-1.46); THYROID STIMULATING HORMONE 1.78 uIU/ML (0.358-3.740)
== END ==
LOC: M LABDRWAD 07:49
PROVIDERS: ATTEND Family Medicine
DX: E07.9 Disorder of thyroid, unspecified (principal)

== ENCOUNTER → 2022-09-26 | Outpatient (CLI) | payer OTHER ==
[2022-09-26 12:37] LABS: FREE T3 3.4 PG/ML (2.3-4.2); FREE T4 0.96 NG/DL (0.89-1.76); THYROID STIMULATING HORMONE 1.845 uIU/ML (0.55-4.78)
== END ==
LOC: M WUC 09:08
PROVIDERS: ATTEND Family Medicine
DX: E03.9 Hypothyroidism, unspecified (principal)

== ENCOUNTER → 2022-10-27 | Outpatient (CLI) | payer OTHER | LOC: M PLAIMG 07:01 | PROVIDERS: ATTEND Physician Assistant | DX: R51.9 Headache, unspecified (principal); M47.12 Other spondylosis with myelopathy, cervical region ==

== ENCOUNTER → 2022-11-22 | Outpatient (CLI) | payer OTHER ==
[2022-11-22 10:46] LABS: HEMOGLOBIN A1c 5.3 % (4.0-6.0)
[2022-11-22 10:51] LABS: C REACTIVE PROTEIN QUANTITATIV < 0.40 MG/DL (<1.0); MAGNESIUM LEVEL 1.9 MG/DL (1.8-2.4); PTH INTACT 26.3 PG/ML (18.5-88.0)
[2022-11-22 10:53] LABS: COMPLEMENT C3 116.5 MG/DL (90.0-170.0); COMPLEMENT C4 28.2 MG/DL (12-36); ESTRADIOL 68.8 PG/ML; IRON (FE) 78 UG/DL (50-170); PERCENT SATURATION 21.7 % (13.2-45.0); THYROID PEROXIDASE ANTIBODY < 28.0 U/ML (<60.0); TOTAL IRON BINDING CAPACITY 359 UG/DL (250-425)
[2022-11-22 10:54] LABS: FERRITIN 45.1 NG/ML (7.3-270.7); LUTEINIZING HORMONE 7.7 mIU/ML
[2022-11-22 10:55] LABS: FOLATE 10.1 NG/ML (>5.4); VITAMIN B12 LEVEL 414 PG/ML (211-911)
[2022-11-28 07:09] LABS: ANTI-PARIETAL CELL ANTIBODY 34.9 Units (0.0-20.0); HOMOCYST(E)INE SERUM 12.5 umol/L (0.0-14.5); INSULIN LEVEL 6.2 uIU/mL (2.6-24.9); INTRINSIC FACTOR ANTIBODY 1.1 AU/mL (0.0-1.1); LEAD BLOOD ADULT <1.0 ug/dL (0.0-3.4); MERCURY LEVEL <1.0 ug/L (0.0-14.9); Methylmalonic Acid 116 nmol/L (0-378); SELENIUM LEVEL BLOOD 239 ug/L (100-340); SSA SJOGRENS A <0.2 AI (0.0-0.9); SSB SJOGRENS B <0.2 AI (0.0-0.9); THYROID STIMULATING IMMUNOGLOB <0.10 IU/L (0.00-0.55); VITAMIN B1 LEVEL WHOLE BLOOD 92.8 nmol/L (66.5-200.0); VITAMIN B6,PYRIDOXAL PHOSPHATE 14.1 ug/L (3.4-65.2); ZINC PLASMA 87 ug/dL (44-115)
== END ==
LOC: M LAB 08:40
PROVIDERS: ATTEND Family Medicine
DX: E03.9 Hypothyroidism, unspecified (principal); R53.83 Other fatigue; E63.9 Nutritional deficiency, unspecified

== ENCOUNTER → 2022-12-06 | Outpatient (REF) | payer OTHER | LOC: M LAB REF 10:46 | PROVIDERS: ATTEND Family Medicine | DX: K90.0 Celiac disease (principal) ==

== ENCOUNTER → 2022-12-16 | Outpatient (CLI) | payer OTHER ==
[2022-12-16 09:27] LABS: LDH LACTATE DEHYDROGENASE 166 U/L (120-246)
[2022-12-16 09:32] LABS: VITAMIN B12 LEVEL 477 PG/ML (211-911)
[2022-12-18 16:10] LABS: GASTRIN 14 pg/mL (0-115); H PYLORI SERUM QUANT IGA <9.0 units (0.0-8.9); H PYLORI SERUM QUANT IGM <9.0 units (0.0-8.9)
== END ==
LOC: M LAB 08:30
PROVIDERS: ATTEND Family Medicine
DX: R79.9 Abnormal finding of blood chemistry, unspecified (principal)

== ENCOUNTER → 2023-02-02 | Outpatient (REF) | payer OTHER | LOC: M LAB REF 15:24 | PROVIDERS: ATTEND Physician Assistant Medical | DX: J02.9 Acute pharyngitis, unspecified (principal) ==

== ENCOUNTER → 2023-03-25 | Outpatient (CLI) | payer OTHER | LOC: M WHC 11:03 | PROVIDERS: ATTEND Family Medicine | DX: Z12.31 Encounter for screening mammogram for malignant neoplasm of breast (principal) ==

== ENCOUNTER → 2023-03-26 | Outpatient (REF) | payer OTHER ==
[2023-03-26 13:12] LABS: ALBUMIN 3.8 G/DL (3.2-5.2); ALKALINE PHOSPHATASE 83 U/L (46-116); ALT/SGPT 52 U/L (7.0-40); AST/SGOT 24 U/L (<34); BILIRUBIN,TOTAL 0.5 MG/DL (0.3-1.2); BLOOD UREA NITROGEN 11 MG/DL (9-23); CALCIUM LEVEL 9.1 MG/DL (8.5-10.1); CARBON DIOXIDE LEVEL 28 MMOL/L (20-31); CHLORIDE LEVEL 105 MMOL/L (98-107); CHOLESTEROL LEVEL 188 MG/DL (<200); CHOLESTEROL RISK RATIO 2.74 (<5); CREATININE FOR GFR 0.68 MG/DL (0.55-1.30); GLOMERULAR FILTRATION RATE > 60.0 (>58); GLUCOSE, FASTING 90 MG/DL (60-100); HDL CHOLESTEROL 68.4 MG/DL (>40); LDL CHOLESTEROL 100.6 MG/DL (<100); NON-HDL-C 119.6 MG/DL; POTASSIUM SERUM 4.3 MMOL/L (3.5-5.1); SODIUM LEVEL 140 MMOL/L (136-145); TOTAL PROTEIN 6.7 G/DL (5.7-8.2); TRIGLYCERIDES LEVEL 95 MG/DL (<150)
[2023-03-26 13:15] LABS: FREE T4 1.11 NG/DL (0.89-1.76); THYROID STIMULATING HORMONE 2.011 uIU/ML (0.55-4.78); TOTAL 25(OH) VITAMIN D 36.7 NG/ML (20.0-100.0)
[2023-03-26 13:19] LABS: BASO # 0.1 10^3/uL (0.0-0.2); BASO % 1.1 % (0.0-1.0); EOS # 0.3 10^3/uL (0.0-0.5); EOS % 4.8 % (0.0-3.0); HEMATOCRIT 42.7 % (36.0-47.0); HEMOGLOBIN 13.7 g/dl (12.0-15.5); LYMPH # 2.2 10^3/uL (1.5-5.0); LYMPH % 33.6 % (24.0-44.0); MEAN CORPUSCULAR HEMOGLOBIN 29.7 pg (27.0-33.0); MEAN CORPUSCULAR HGB CONC 32.1 g/dl (32.0-36.5); MEAN CORPUSCULAR VOLUME 92.4 fl (80.0-96.0); MONO # 0.4 10^3/uL (0.0-0.8); MONO % 5.9 % (2.0-8.0); NEUTROPHILS # 3.5 10^3/uL (1.5-8.5); NEUTROPHILS % 54.4 % (36.0-66.0); PLATELET COUNT, AUTOMATED 247 10^3/uL (150-450); RED BLOOD COUNT 4.62 10^6/uL (4.00-5.40); WHITE BLOOD COUNT 6.4 10^3/uL (4.0-10.0)
== END ==
LOC: M LABDRWAD 12:19
PROVIDERS: ATTEND Family Medicine
DX: E03.9 Hypothyroidism, unspecified (principal); E55.9 Vitamin D deficiency, unspecified; Z13.29 Encounter for screening for other suspected endocrine disorder; Z13.0 Encounter for screening for diseases of the blood and blood-forming organs and certain disorders involving the immune mechanism; Z13.220 Encounter for screening for lipoid disorders

== ENCOUNTER → 2023-07-09 | Outpatient (CLI) | payer OTHER ==
[2023-07-09 14:57] LABS: FREE T3 3.6 PG/ML (2.3-4.2)
[2023-07-09 14:58] LABS: FREE T4 1.12 NG/DL (0.89-1.76); THYROID STIMULATING HORMONE 0.878 uIU/ML (0.55-4.78)
== END ==
LOC: M LABDRWAD 08:49
PROVIDERS: ATTEND Family Medicine
DX: E07.89 Other specified disorders of thyroid (principal)

== ENCOUNTER → 2023-09-15 | Outpatient (REF) | payer OTHER ==
[2023-09-15 14:16] LABS: FREE T4 1.03 NG/DL (0.89-1.76); THYROID STIMULATING HORMONE 2.183 uIU/ML (0.55-4.78)
[2023-09-15 14:19] LABS: FREE T3 3.3 PG/ML (2.3-4.2)
== END ==
LOC: M LABDRWAD 13:23
PROVIDERS: ATTEND Family Medicine
DX: E07.89 Other specified disorders of thyroid (principal)

== ENCOUNTER → 2023-09-25 | Outpatient (CLI) | payer OTHER ==
[2023-09-25 13:54] LABS: ALBUMIN 3.7 G/DL (3.2-5.2); ALKALINE PHOSPHATASE 60 U/L (46-116); ALT/SGPT 22 U/L (7.0-40); AST/SGOT 18 U/L (<34); BILIRUBIN,TOTAL 0.6 MG/DL (0.3-1.2); BLOOD UREA NITROGEN 14 MG/DL (9-23); CALCIUM LEVEL 8.6 MG/DL (8.5-10.1); CARBON DIOXIDE LEVEL 29 MMOL/L (20-31); CHLORIDE LEVEL 108 MMOL/L (98-107); CREATININE FOR GFR 0.66 MG/DL (0.55-1.30); GLOMERULAR FILTRATION RATE > 60.0 (>58); GLUCOSE, FASTING 94 MG/DL (60-100); POTASSIUM SERUM 4.7 MMOL/L (3.5-5.1); SODIUM LEVEL 140 MMOL/L (136-145); TOTAL PROTEIN 6.5 G/DL (5.7-8.2)
[2023-09-25 13:56] LABS: TOTAL 25(OH) VITAMIN D 33.2 NG/ML (20.0-100.0); VITAMIN B12 LEVEL 496 PG/ML (211-911)
== END ==
LOC: M ADAMS 07:56
PROVIDERS: ATTEND Family Medicine
DX: E03.9 Hypothyroidism, unspecified (principal); D51.3 Other dietary vitamin B12 deficiency anemia; R74.01 Elevation of levels of liver transaminase levels

== ENCOUNTER → 2023-11-02 | Outpatient (REF) | payer OTHER ==
[2023-11-02 14:36] LABS: CREATININE, URINE 37.3 MG/DL
== END ==
LOC: M LAB REF 12:53
PROVIDERS: ATTEND Family Medicine
DX: D51.3 Other dietary vitamin B12 deficiency anemia (principal); R74.01 Elevation of levels of liver transaminase levels; E03.9 Hypothyroidism, unspecified

== ENCOUNTER → 2024-03-22 | Outpatient (REF) | payer OTHER ==
[2024-03-22 13:41] LABS: BASO # 0.1 10^3/uL (0.0-0.2); BASO % 0.7 % (0.0-1.0); EOS # 0.4 10^3/uL (0.0-0.5); HEMATOCRIT 42.2 % (36.0-47.0); HEMOGLOBIN 13.6 g/dl (12.0-15.5); LYMPH # 2.2 10^3/uL (1.5-5.0); LYMPH % 30.6 % (24.0-44.0); MEAN CORPUSCULAR HEMOGLOBIN 29.8 pg (27.0-33.0); MEAN CORPUSCULAR HGB CONC 32.2 g/dl (32.0-36.5); MEAN CORPUSCULAR VOLUME 92.3 fl (80.0-96.0); MONO # 0.5 10^3/uL (0.0-0.8); MONO % 6.7 % (2.0-8.0); NEUTROPHILS # 4.1 10^3/uL (1.5-8.5); NEUTROPHILS % 56.6 % (36.0-66.0); PLATELET COUNT, AUTOMATED 208 10^3/uL (150-450); RED BLOOD COUNT 4.57 10^6/uL (4.00-5.40); WHITE BLOOD COUNT 7.2 10^3/uL (4.0-10.0)
[2024-03-22 13:52] LABS: ALBUMIN 3.9 G/DL (3.2-5.2); ALKALINE PHOSPHATASE 75 U/L (46-116); ALT/SGPT 36 U/L (7.0-40); AST/SGOT 26 U/L (<34); BILIRUBIN,TOTAL 0.4 MG/DL (0.3-1.2); BLOOD UREA NITROGEN 13 MG/DL (9-23); CALCIUM LEVEL 10.2 MG/DL (8.5-10.1); CARBON DIOXIDE LEVEL 29 MMOL/L (20-31); CHLORIDE LEVEL 107 MMOL/L (98-107); CHOLESTEROL LEVEL 203 MG/DL (<200); CHOLESTEROL RISK RATIO 3.31 (<5); FREE T4 1.02 NG/DL (0.89-1.76); GLOMERULAR FILTRATION RATE > 60.0 (>58); GLUCOSE, FASTING 110 MG/DL (60-100); HDL CHOLESTEROL 61.2 MG/DL (>40); LDL CHOLESTEROL 117.8 MG/DL (<100); NON-HDL-C 141.8 MG/DL; POTASSIUM SERUM 4.5 MMOL/L (3.5-5.1); SODIUM LEVEL 138 MMOL/L (136-145); THYROID STIMULATING HORMONE 2.811 uIU/ML (0.55-4.78); TOTAL 25(OH) VITAMIN D 33.8 NG/ML (20.0-100.0); TRIGLYCERIDES LEVEL 120 MG/DL (<150)
[2024-03-23 14:59] LABS: HEMOGLOBIN A1c 5.2 % (4.0-6.0)
== END ==
LOC: M LABDRWAD 12:35
PROVIDERS: ATTEND Family Medicine
DX: E03.9 Hypothyroidism, unspecified (principal); E55.9 Vitamin D deficiency, unspecified; Z13.29 Encounter for screening for other suspected endocrine disorder; Z13.220 Encounter for screening for lipoid disorders

== ENCOUNTER → 2024-03-29 | Outpatient (CLI) | payer OTHER | LOC: M WHC 16:42 | PROVIDERS: ATTEND Family Medicine | DX: Z12.31 Encounter for screening mammogram for malignant neoplasm of breast (principal) ==

== ENCOUNTER → 2024-08-05 | Outpatient (REF) | payer OTHER ==
[2024-08-05 15:13] LABS: FREE T4 1.17 NG/DL (0.89-1.76); THYROID STIMULATING HORMONE 1.803 uIU/ML (0.55-4.78)
[2024-08-05 15:15] LABS: FREE T3 3.6 PG/ML (2.3-4.2)
== END ==
LOC: M LABWUC 13:23
PROVIDERS: ATTEND Family Medicine
DX: E03.1 Congenital hypothyroidism without goiter (principal)

== ENCOUNTER → 2025-02-08 | Outpatient (REF) | payer OTHER | LOC: M SFHCDERM 15:18 | PROVIDERS: ATTEND Physician Assistant | DX: D22.39 Melanocytic nevi of other parts of face (principal) ==

== ENCOUNTER → 2025-03-22 | Outpatient (REF) | payer OTHER ==
[2025-03-22 14:09] LABS: BASO # 0.1 10^3/uL (0.0-0.2); BASO % 1.2 % (0.0-1.0); EOS # 0.5 10^3/uL (0.0-0.5); EOS % 8.4 % (0.0-3.0); LYMPH # 1.9 10^3/uL (1.5-5.0); LYMPH % 32.0 % (24.0-44.0); MONO # 0.4 10^3/uL (0.0-0.8); MONO % 5.9 % (2.0-8.0); NEUTROPHILS # 3.2 10^3/uL (1.5-8.5); NEUTROPHILS % 52.3 % (36.0-66.0); PLATELET COUNT, AUTOMATED 192 10^3/uL (150-450)
[2025-03-22 14:15] LABS: FREE T4 1.13 NG/DL (0.89-1.76)
[2025-03-22 14:16] LABS: TOTAL 25(OH) VITAMIN D 41.0 NG/ML (20.0-100.0)
[2025-03-22 14:29] LABS: ALT/SGPT 19 U/L (7.0-40); AST/SGOT 18 U/L (<34); CALCIUM LEVEL 10.2 MG/DL (8.5-10.1); CARBON DIOXIDE LEVEL 30 MMOL/L (20-31); CHLORIDE LEVEL 104 MMOL/L (98-107); CHOLESTEROL LEVEL 174 MG/DL (<200); CHOLESTEROL RISK RATIO 3.19 (<5); CREATININE FOR GFR 0.77 MG/DL (0.55-1.30); GLOMERULAR FILTRATION RATE > 90.0 (>58); LDL CHOLESTEROL 102.5 MG/DL (<100); NON-HDL-C 119.5 MG/DL; POTASSIUM SERUM 4.6 MMOL/L (3.5-5.1); SODIUM LEVEL 142 MMOL/L (136-145); TRIGLYCERIDES LEVEL 85 MG/DL (<150)
== END ==
LOC: M LABDRWAD 13:00
PROVIDERS: ATTEND Family Medicine
DX: E55.9 Vitamin D deficiency, unspecified (principal); E03.9 Hypothyroidism, unspecified; Z13.29 Encounter for screening for other suspected endocrine disorder; Z13.220 Encounter for screening for lipoid disorders; Z13.0 Encounter for screening for diseases of the blood and blood-forming organs and certain disorders involving the immune mechanism

== ENCOUNTER → 2025-03-31 | Outpatient (CLI) | payer OTHER | LOC: M WHC 10:30 | PROVIDERS: ATTEND Family Medicine | DX: Z12.31 Encounter for screening mammogram for malignant neoplasm of breast (principal) ==